=== PATIENT | male | born 1990 | race Caucasian/White ===

== ENCOUNTER 2021-12-06 17:47 | Emergency (ER) | payer SELFPAY ==
[~2021-12-06] VITALS: Ht 182.9 cm; Wt 122.5 kg
[2021-12-06] MEDS ORDERED: ACETAMINOPHEN 325MG TABLET PO ONE (18:30)
[2021-12-06 20:15] VITALS: BP 130/67
== END 2021-12-06 21:04 | disposition home or self-care (01) ==
LOC: ER 17:47
DX: S09.8XXA Other specified injuries of head, initial encounter (principal); F10.129 Alcohol abuse with intoxication, unspecified; W10.8XXA Fall (on) (from) other stairs and steps, initial encounter; Y93.89 Activity, other specified; Y92.89 Other specified places as the place of occurrence of the external cause; Y99.8 Other external cause status; Y90.0 Blood alcohol level of less than 20 mg/100 ml
CPT/HCPCS: 72100; 99285